=== PATIENT | female | born 1970 | race Two or more races ===

== ENCOUNTER 2024-11-24 16:09 | Emergency (ER) | payer MEDICAID, OTHER ==
[~2024-11-24] VITALS: Ht 170.2 cm; Wt 68.0 kg
[2024-11-24 16:12] VITALS: TEMP 98.1
[2024-11-24] MEDS: KETOROLAC TROMETH 30 MG/ML 1ML VIAL IM ONE (16:50)
[2024-11-24] MEDS: methylPREDNISolone SOD SUCC 125 MG/2 ML VL IM ONE (16:50)
--- NOTE | 2024-11-24 16:50 | ED.PDOC ---
Eye-HPI HPI Comments 54 year old female with a past medical history of diabetes, thyroid disease, hypertension, hyperlipidemia presents to the ED with a chief complaint of bilateral ear pain onset 3 weeks. Patient states she began experiencing RT ear pain, with a ringing/static noise. For the past 4 days, she has been experiencing LT shoulder pain radiates to Lt side neck and LT ear with a ringing noise, as well as a tingling sensation lasted about 3 seconds. Appointment with PCP on 12/20/24. Was on antibiotics for UTI, finished course about 2 days ago. No other symptoms or modifying factors present at this time. Denies blunt trauma (hand blow to the ear, fall, direct hit) Denies penetrating trauma (Q-tip use, match-stick, gunshot wound, welding spark) Denies ear trauma Denies barotrauma Denies blast injury Denies air travel Denies scuba diving Denies hearing loss Denies fever chills night sweats unintentional weight loss Denies headache dizziness Chief Complaint: Upper Extremity Time Seen by MD: 16:35 Reviewed Notes: Medications, Allergies Home Meds Active Scripts Methocarbamol (Methocarbamol) 500 Mg Tab, 500 MG PO Q8HP PRN for 5 Days, #15 TAB 0 Refills Prov:LJ ANDERSEN NP 11/24/24 Dexamethasone Sodium Phosphate (Dexamethasone Sodium Phos) 0.1 % [place]aly[place], 4 DROP EACH EAR BID for 5 Days, #5 ML 0 Refills Prov:LJ ANDERSEN RECEIVING OPERATOR 11/24/24 Information Source: Patient Mode of Arrival: Ambulatory Timing: Weeks Duration: Since onset Prehospital treatment: None Associated signs and symptoms: Ear Pain Past Medical History PAST MEDICAL HISTORY: DM, HTN, Thyroid, UTI'S Surgical History: Denies all surgeries CONSTRUCTION MANAGER History: No Pertinent CONSTRUCTION MANAGER History Family History Family History: Reviewed,noncontributory to illness, No family hx of Cancer, No family hx of DM, No family hx of Heart azra, No family hx of HTN, No family hx ofKidney azra, No family hx of Liver azra, No family hx of Lung azra, No family hx of Stroke Social History Smoker: Non-Smoker Alcohol: Denies ETOH Use Drugs: Denies Drug Use Lives In: Home All Other Systems: Reviewed and Negative (as per HPI) Physical Exam General Appearance: No Apparent Distress, Normal HEENT: Normal ENT Inspection, Pharynx Normal, TMs Normal Neck: Full Range of Motion, Non-Tender, Normal, Normal Inspection Respiratory: Chest Non-Tender, Lungs Clear, No Accessory Muscle Use, No Respiratory Distress, Normal Breath Sounds Cardiovascular: No Edema, No JVD, No Murmur, No Gallop, Normal Peripheral Pulses, Regular Rate/Rhythm Breast Exam: Deferred Gastrointestinal: No Organomegaly, Non Tender, No Pulsatile Mass, Normal Bowel Sounds, Soft Genitalia: Deferred Pelvic: Deferred Rectal: Deferred Extremities: No calf tenderness, Normal capillary refill, Normal inspection, Normal range of motion, Non-tender, No pedal edema Musculoskeletal : Apperance: Normal Neurologic: Alert, exceptional needs teacher II-XII nml as Tested, No Motor Deficits, Normal Affect, Normal Mood, No Sensory Deficits Cerebellar Function: Normal Reflexes: Normal Skin: Dry, Normal Color, Warm Lymphatic: No Adenopathy Was a procedure done? Was a procedure done?: No EENT DIFF Eye: Other X-Ray, Labs, Meds, VS Vital Signs Date Time Temp Pulse Resp B/P (MAP) Pulse Ox O2 Delivery O2 Flow Rate FiO2 11/24/24 18:04 69 16 96 Room Air 11/24/24 18:04 69 16 122/67 (85) 96 11/24/24 16:12 98.1 95 16 148/93 96 98.1 Current Medications Medications (Trade) Dose Ordered Sig/Catarino Route Start Time Stop Time Status Last Admin Ketorolac Tromethamine (Toradol Injection) 30 mg ONCE ONCE IM 11/24/24 16:45 11/24/24 16:46 DC 11/24/24 16:50 Methylprednisolone Sodium Succinate (Solu Medrol) 125 mg ONCE ONCE IM 11/24/24 16:45 11/24/24 16:46 DC 11/24/24 16:50 X-Ray, Labs, Meds, VS Comment 54 year old female with a past medical history of diabetes, thyroid disease, hypertension, hyperlipidemia presents to the ED with a chief complaint of bilateral ear pain onset 3 weeks. Patient arrives alert and oriented, ABC's intact, afebrile, vital signs stable, saturating well in room air Diagnostic imaging ordered by me and results interpreted by radiology : CT Head wo contrast: Patient was given: Norma-Medrol and Toradol. Tolerated medications with no adverse reaction. Additional MDM Review of External, Non-ED records: External records reviewed. Discussion with independent historian (EMS, family) history obtained from the patient/parents (if applicable) at bedside Chronic conditions affecting care: DM, HTN, HLD, thyroid disease Social determinants of health affecting care: None I considered escalation of care to admission for this patient, however given the reassuring workup, the patient is safe for outpatient management. On reevaluation, patient had symptomatic improvement. Patient is stable for discharge at this time. External notes reviewed. Test results and diagnostic imaging interpreted. All diagnostic findings, discharge care, education and instructions provided Follow-up with PCP in 2 to 3 days Patient verbalized understanding and agreed to treatment plan Vital signs stable, afebrile, no acute distress noted Patient ambulatory with strong steady gait Advised to return precautions for any new or worsening symptoms, return to ER immediately for re-evaluation Patient is aware that the purpose of this visit was for an acute medical emergency requiring emergent stabilization. Chronic conditions, including malignancies have not been ruled out. Patient is instructed to follow up with PCP as directed and discharge instructions for continued care and workup. If unable to arrange follow-up, patient is to return to the emergency department for reassessment. Patient (parent or legal guardian if applicable) was given verbal and written discharge instructions and acknowledges understanding. Time of 1ST Reevaluation: 17:05 Reevaluation 1ST: Improved Patient Education/Counseling: Diagnosis, Treatment Family Education/Counseling: No Family Present SEPSIS Sepsis Screen Date sepsis recognized/suspect: Nov 24, 2024 Time Sepsis recognized/suspect: 1614 Recent Procedure: No On Antibiotic Therapy: No Respiratory Rate >20: No Heart Rate >90: Yes Temp<36 C (96.8 F) or >38.3 C: No SBP <90 or MAP <65 mmHG: No New Acute Mental Status Change: No Is the patient on CPAP, BIPAP,: No Physician Orders Head Without Contrast (11/24/24 16:46) Vital Signs Date Time Temp Pulse Resp B/P (MAP) Pulse Ox O2 Delivery O2 Flow Rate FiO2 11/24/24 18:04 69 16 96 Room Air 11/24/24 18:04 69 16 122/67 (85) 96 11/24/24 16:12 98.1 95 16 148/93 96 98.1 Departure 1 Departure Time of Disposition: 17:53 Impression: Primary Impression: Headache Qualified Codes: R51.9 - Headache, unspecified Additional Impression: Otalgia Qualified Codes: H92.03 - Otalgia, bilateral Disposition: HOME / SELF CARE / HOMELESS Condition: Stable e-Prescriptions Methocarbamol (Methocarbamol) 500 Mg Tab 500 MG PO Q8HP PRN for 5 Days, #15 TAB 0 Refills Prov: LJ ANDERSEN RECEIVING OPERATOR 11/24/24 Dexamethasone Sodium Phosphate (Dexamethasone Sodium Phos) 0.1 % [place] 4 DROP EACH EAR BID for 5 Days, #5 ML 0 Refills Prov: LJ ANDERSEN RECEIVING OPERATOR 11/24/24 Discharged With: Self Critical Care Note Critical Care Time?: No Stability Stability form required: No Heart Score Heart Score: Heart Score Response (Comments) Value History N/A 0 EKG N/A 0 Age N/A 0 Risk Factors N/A 0 Troponin N/A 0 Total 0 I personally scribed for LJ ANDERSEN NP ([email or web address]) on 11/24/24 at 16:50. Electronically submitted by Vanesa Chisholm ([email or web address]). I personally scribed for LJ ANDERSEN NP ([email or web address]) on 11/24/24 at 17:55. Electronically submitted by Vanesa Chisholm ([email or web address]). LJ ANDERSEN NP Nov 24, 2024 16:50
[2024-11-24] MEDS ORDERED: [UNRECOGNIZED DRUG - CODE] EACH EAR (16:54)
[2024-11-24] MEDS ORDERED: METH-1181 PO (16:54)
--- NOTE | 2024-11-24 17:23 | DVH ---
CT brain without contrast CLINICAL INDICATION: NAVA FINDINGS: The study was performed in a multidetector scanner. This study performed taking axial image s from the skull base up to the vertex. Both brain and bone windows are photographed. Dose lowering techniques have been used including automated exposure control and adjustment of mA and /or KV according to patient size. Normal and symmetrical shape and density of brain parenchyma above and below the tentorium is seen. T here is no mass, midline shift or hydrocephalus. No intra/extra-axial collections demonstrated. There is no intracranial hemorrhage. The calvarium is intact. IMPRESSION: 1. Normal brain and skull. Computed Tomographic Radiation Dosimetry Report: Total CTDI vol = 52.94mGy Total DLP = 52.94mGy-cm Al l CT scans at this medical facility are performed using dose modulation techniques as appropriate to a performed exam including the following: Automated exposure control was utilized; adjustment of the MA and/or KvP according to patient size; and use of iterative reconstruction technique.
[2024-11-24 18:04] VITALS: BP 122/67; PULSE 69; RESP 16; O2SAT 96
== END 2024-11-24 18:06 | disposition home or self-care (01) ==
LOC: ER 16:09
DX: H92.03 Otalgia, bilateral (principal); R51.9 Headache, unspecified; E11.9 Type 2 diabetes mellitus without complications; I10 Essential (primary) hypertension; E78.5 Hyperlipidemia, unspecified; Z87.440 Personal history of urinary (tract) infections; Z79.899 Other long term (current) drug therapy
CPT/HCPCS: 70450; 96372; 99285; J1885; J2919